=== PATIENT | female | born 1955 | race Caucasian/White ===

== ENCOUNTER 2020-12-15 15:58 | Emergency (ER) | payer BC, MEDICARE, OTHER ==
[~2020-12-15] VITALS: Ht 165.1 cm; Wt 77.3 kg
[~2020-12-15 15:58] MED LIST: 7-OX5POW2 PO; CALC600T35 PO; CHOL10002 PO; CYAN50003 PO; LEVO50TA PO; METF-1203 PO; OMEG1CAP13 PO; PROG10PO3 PO
[2020-12-15] MEDS ORDERED: acetaminophen 325mg tablet PO STA (16:31)
[2020-12-15] MEDS ORDERED: CASIRIVIMAB/IMDEVIMAB inject. 10 ML in normal saline 100ml IV soln 100 ML IV ONE (16:35)
[2020-12-15] MEDS ORDERED: BAMLANIVIMAB 700MG, ETESEVIMAB 1,400MG in NS 100mL (Total vol 160ml) IV ONE (16:45)
[2020-12-15 16:50] LABS: BASOPHILS % (AUTO) 0.7 % (0-1); EOSINOPHILS % (AUTO) 0 % (0-6); HEMATOCRIT 41.2 % (35.0-45.0); HEMOGLOBIN 14.1 g/dl (12.0-16.0); LYMPHOCYTES # (AUTO) 0.7 X10'3 (1.1-4.8); LYMPHOCYTES % (AUTO) 26.4 % (21-51); MEAN CORPUSCULAR HEMOGLOBIN 31.6 PG (27.0-31.0); MEAN CORPUSCULAR HGB CONC 34.2 g/dL (33.0-36.5); MEAN CORPUSCULAR VOLUME 92.4 FL (78-98); MEAN PLATELET VOLUME 7.7 FL (7.4-10.4); MONOCYTES # (AUTO) 0.2 X10'3 (0-0.9); MONOCYTES % (AUTO) 6.1 % (2-12); NEUTROPHILS # (AUTO) 1.9 X10'3 (1.8-7.7); NEUTROPHILS % (AUTO) 66.8 % (42-75); PLATELET COUNT 165 X10'3 (140-440); RED BLOOD COUNT 4.46 X10'6 (4.20-5.60); RED CELL DISTRIBUTION WIDTH 13.5 % (11.5-14.5); WHITE BLOOD COUNT 2.8 X10'3 (4.5-11.0)
[2020-12-15 17:01] LABS: D-DIMER 0.98 MG/L FEU (0-0.50)
[2020-12-15 17:06] LABS: ALANINE AMINOTRANSFERASE 45 U/L (12-78); ALBUMIN 3.4 G/DL (3.4-5.0); ALBUMIN/GLOBULIN RATIO 0.8 (1.1-1.5); ALKALINE PHOSPHATASE 58 IU/L (46-116); ANION GAP 12 (8-16); ASPARTATE AMINO TRANSFERASE 59 U/L (10-37); BILIRUBIN,TOTAL 0.3 MG/DL (0.1-1.0); BLOOD UREA NITROGEN 24 MG/DL (7-18); BUN/CREATININE RATIO 13.7 (6.6-38.0); C-REACTIVE PROTEIN 6.83 MG/DL (0.0-0.5); CALCIUM 8.4 MG/DL (8.5-10.1); CHLORIDE 94 MMOL/L (99-107); CREATININE 1.75 MG/DL (0.40-0.90); GLUCOSE 82 MG/DL (70-104); POTASSIUM 4.2 MMOL/L (3.5-5.1); SODIUM 128 MMOL/L (135-145); TOTAL CARBON DIOXIDE 21.9 MMOL/L (24-32); TOTAL PROTEIN 7.8 G/DL (6.4-8.2); eGFR 29 ML/MIN
[2020-12-15] MEDS ORDERED: aspirin 81mg tab.chew PO ONE (17:15)
[2020-12-15 18:56] LABS: PLATELET ESTIMATE NORMAL; TOTAL CELLS COUNTED 100
[2020-12-15 19:02] VITALS: BP 132/76
== END 2020-12-15 19:04 | disposition home or self-care (01) ==
LOC: ER 16:00
DX: U07.1 COVID-19 (principal); E87.1 Hypo-osmolality and hyponatremia; R06.00 Dyspnea, unspecified; D72.819 Decreased white blood cell count, unspecified; R50.9 Fever, unspecified; R05.9 Cough, unspecified; I26.99 Other pulmonary embolism without acute cor pulmonale; E11.9 Type 2 diabetes mellitus without complications; Z85.3 Personal history of malignant neoplasm of breast; Z98.890 Other specified postprocedural states; Z88.8 Allergy status to other drugs, medicaments and biological substances; Z79.899 Other long term (current) drug therapy
CPT/HCPCS: 36415; 71045; 80053; 83735; 84145; 85007; 85025; 85379; 86140; 99291; M0245; Q0245; 99284; Q0239